=== PATIENT | male | born 1980 | race Caucasian/White ===

== ENCOUNTER 2018-08-24 09:47 | Emergency (ER) | payer OTHER ==
[~2018-08-24] VITALS: Ht 188 cm; Wt 100.0 kg
[2018-08-24 09:47] VITALS: BP 130/75
[2018-08-24] MEDS ORDERED: ACET1TAB55 (09:55)
[2018-08-24] MEDS ORDERED: KETO10TAB PO (10:49)
[2018-08-24] MEDS ORDERED: VALI5TAB PO (10:49)
== END 2018-08-24 10:54 | disposition home or self-care (01) ==
LOC: M ED 09:47
DX: S39.012A Strain of muscle, fascia and tendon of lower back, initial encounter (principal); M79.605 Pain in left leg; X58.XXXA Exposure to other specified factors, initial encounter; Y92.89 Other specified places as the place of occurrence of the external cause